=== PATIENT | female | born 1960 | race Caucasian/White ===

== ENCOUNTER 2020-07-10 07:56 | Emergency (ER) | payer OTHER, SELFPAY ==
--- NOTE | ~2020-07-10 | XR_ITS ---
XR knee LT min 4V 07/10/2020 09:04 INDICATION: Left knee pain PROCEDURE: 4 views left knee COMPARISON: No prior studies for comparison. FINDINGS: Fracture, dislocation or subluxation is not identified. Small joint effusion. There is mild osteoarthritis. The soft tissues appear within normal limits. No foreign bodies are identified. IMPRESSION: 1: NO ACUTE BONE OR JOINT ABNORMALITY IDENTIFIED. 2: Mild osteoarthritis of the patellofemoral compartment. Reviewed, dictated and finalized at location B.
--- NOTE | ~2020-07-10 | XR_ITS ---
XR ankle LT min 3V 07/10/2020 09:04 INDICATION: Left ankle pain after falling PROCEDURE: 4 views left ankle COMPARISON: No prior studies for comparison. FINDINGS: Fracture, dislocation or subluxation is not identified. The soft tissues appear within norm al limits. No foreign bodies are identified. IMPRESSION: 1: NO ACUTE BONE OR JOINT ABNORMALITY IDENTIFIED. Reviewed, dictated and finalized at location B.
[2020-07-10 08:00] VITALS: BP 147/91; PULSE 70; RESP 16; TEMP 36.8; O2SAT 100
--- NOTE | 2020-07-10 10:12 | ED.LOWEXIN ---
HPI - Extremity Injury (Lower) General Chief Complaint: Extremity Injury, Lower Stated Complaint: fall/ankle & knee pain Time Seen by Provider: 07/10/20 08:19 Source: patient Mode of arrival: ambulatory Limitations: no limitations History of Present Illness HPI Narrative: This patient is a 60 year old female who presents for evaluation of left knee and left ankle pain. She states she slipped last night in the mud. She reports pain with bearing weakness. she reports mild swelling to right ankle. She took 2 ibuprofen this morning. She denies head injury or any other pain. Related Data Home Medications Medication Instructions Recorded Confirmed aspirin [Adult Low Dose Aspirin] 07/10/20 bupropion HCl mg PO 07/10/20 cetirizine mg 07/10/20 hydrochlorothiazide 07/10/20 irbesartan mg 07/10/20 Allergies Allergy/AdvReac Type Severity Reaction Status Date / Time azithromycin Allergy Hives Verified 07/10/20 08:34 Review of Systems Review of Systems: All systems reviewed & are unremarkable except as noted in HPI and below PMFSH Past Medical History Medical History (Updated 07/10/20 @ 10:17 by Brianda Weber MD) Hypertension Surgical History Surgical History (Updated 07/10/20 @ 10:14 by Brianda Weber MD) History of hysterectomy Family History Family History (Updated 06/23/14 @ 07:13 by DOCTOR UNKNOWN) Father Hypertension Family history of malignant neoplasm of kidney Mother Hypertension Cerebrovascular accident Other Family history of allergic disorder Social History Social History Alcohol intake: current Exam Const: General: no acute distress and alert Orientation/consciousness: patient oriented x3 HENMT: Head: normocephalic and atraumatic Face and sinus: face symmetric Throat: posterior oropharynx normal, tonsils normal and uvula midline Eyes: Pupils: Equal, round and reactive pupils present EOM: EOMs intact bilaterally Chest: Chest palpation & inspection: normal inspection of the chest Resp: Effort & Inspection: normal respiratory effort Skin: General skin exam: normal color Rashes: no rashes Neuro: General: patient oriented x3 and moves all extremities Extrem: General: no pedal edema Other: left knee with no swelling or bruising. , left ankle with mild anterior tenderness but no deformity, no swelling, no erythema or bruising Psych: Mental Status: mental status grossly normal Course Reevaluation(s) Reevaluation #1: I discussed with patient that xray did not show any acute fractures. Date: 07/10/20 Time: 10:16 Vital Signs Vital signs: Vital Signs Temperature 98.2 F 07/10/20 08:00 Pulse Rate 70 07/10/20 08:00 Respiratory Rate 16 07/10/20 08:00 Blood Pressure 147/91 H 07/10/20 08:00 Pulse Oximetry 100 07/10/20 08:00 Temperature 98.2 F 07/10/20 08:00 Pulse Rate 70 07/10/20 08:00 Respiratory Rate 16 07/10/20 08:00 Blood Pressure 147/91 H 07/10/20 08:00 Pulse Oximetry 100 07/10/20 08:00 MDM - Extremity Injury (Lower) Imaging Data Radiologist's impression: ITS Impressions Knee X-Ray 07/10/20 09:11 IMPRESSION: 1: NO ACUTE BONE OR JOINT ABNORMALITY IDENTIFIED. 2: Mild osteoarthritis of the patellofemoral compartment. Ankle X-Ray 07/10/20 09:12 IMPRESSION: 1: NO ACUTE BONE OR JOINT ABNORMALITY IDENTIFIED. Discharge Plan Discharge Clinical Impression: Osteoarthritis of left knee, Left ankle sprain Patient Disposition: Home, Self-Care Condition: Stable Instructions: Antibiotic Form, Ankle Sprain (ED), Arthralgia (ED) Additional Instructions: Today you suffered an ankle and knee sprain. continue to ice as needed. Follow up with your primary care physician or your orthopedic surgeon if pain not improved within 1 week. Prescriptions: New naproxen 500 mg tablet 500 mg PO BID PRN (Reason: pain) Qty: 14 RF: 0 No Action cetirizine 10 mg tablet
[2020-07-10 11:00] VITALS: BP 124/75; PULSE 70; RESP 16; O2SAT 100
== END 2020-07-10 11:00 | disposition home or self-care (01) ==
PROVIDERS: Emergency Provider General Practice
DX: M17.12 Unilateral primary osteoarthritis, left knee (principal); S93.402A Sprain of unspecified ligament of left ankle, initial encounter; W01.0XXA Fall on same level from slipping, tripping and stumbling without subsequent striking against object, initial encounter; I10 Essential (primary) hypertension
CPT/HCPCS: 73564; 73610; 99284

== ENCOUNTER → 2020-08-03 07:01 | Outpatient (CLI) | payer OTHER, SELFPAY ==
--- NOTE | ~2020-08-03 | MR_ITS ---
EXAMINATION: MR knee LT wo con DATE: 08/03/2020 07:41 INDICATION: Left knee pain TECHNIQUE: Magnetic resonance imaging (MRI) of the left knee was performed without intravenous contra st. Sequences included coronal PD-weighted FSE, coronal PD-weighted FS FSE, sagittal T2-weighted FSE , sagittal PD-weighted FS FSE and axial PD weighted fat saturated FSE. COMPARISON: None. FINDINGS: Medial compartment: Longitudinal oblique tear extending to the inferior articular surface at the body and posterior horn of the medial meniscus. Mild partial thickness cartilage loss with chondral surface irregularity lobo g the medial tibial plateau and weightbearing medial femoral condyle. Small marginal osteophytes are present. Lateral compartment: Lateral meniscus is normal. Deep chondral fissuring with underlying subarticular edema at the medial side of the lateral tibial plateau along the shoulder the intercondylar eminence. Patellofemoral compartment: Extensive deep chondral ulceration with underlying cortical irregularity and scattered subarticular e gilbert at both the medial and lateral patellar facets and intervening apical ridge. Small region of brendon p chondral ulceration also with cortical irregularity and subarticular edema at the central aspect of the lateral trochlea. Ligaments and tendons: Anterior and posterior cruciate ligaments are normal. The medial collateral ligament and fibular domingo ateral ligament complex are normal. Mild tendinopathy at the patellar insertion of the distal quadric eps and proximal patellar tendons. The visualized medial and lateral hamstring tendons as well as the iliotibial band are normal. Heterotopic ossicle is seen in the proximal tendon of the medial head of the gastrocnemius muscle at its femoral insertion. Fluid: Small left knee joint effusion. No loose osteochondral bodies identified. Osseous/other: Normal marrow signal aside from the previous noted regions of degenerative subarticular edema. No fra cture or pathologic marrow replacing process. IMPRESSION: 1. Longitudinal oblique medial meniscal tear. 2. Tricompartmental osteoarthritis, moderate severity in the patellofemoral compartment with extensiv e high-grade chondromalacia and mild in the medial and lateral compartments. 3. Likely reactive small left knee joint effusion. Reviewed, dictated and finalized at location A. IMPRESSION: 1. Longitudinal oblique medial meniscal tear. 2. Tricompartmental osteoarthritis, moderate severity in the patellofemoral com partment with extensive high-grade chondromalacia and mild in the medial and la teral compartments. 3. Likely reactive small left knee joint effusion.
== END ==
PROVIDERS: Visit Provider Nurse Practitioner Family
DX: M17.12 Unilateral primary osteoarthritis, left knee (principal); M25.462 Effusion, left knee; S83.242A Other tear of medial meniscus, current injury, left knee, initial encounter; X58.XXXA Exposure to other specified factors, initial encounter
CPT/HCPCS: 73721

== ENCOUNTER 2020-10-05 15:16 | Outpatient (CLI) | payer OTHER, SELFPAY ==
--- NOTE | 2020-10-05 15:17 | ECG_ITS ---
Measurements Intervals [place] Rate: 67 P: 64 HI: 178 QRS: 26 QRSD: 118 T: 42 QT: 382 QTc: 404 Interpretive Statements SINUS RHYTHM INTRAVENTRICULAR CONDUCTION DELAY MINIMAL Q WAVES- INFERIOR LEADS BASELINE ARTIFACT- I, II, III, AVR, AVL, AVF BORDERLINE ECG Electronically Signed On 10-05-2020 15:31:48 [employer]ED [employer]GER by Drake Torres D.O.
[2020-10-05 15:57] LABS: Anion Gap 9 mmol/L (8-16); Blood Urea Nitrogen 16 mg/dL (7-17); Calcium 9.4 mg/dL (8.4-10.2); Carbon Dioxide 30 mmol/L (22-30); Chloride 102 mmol/L (98-107); Estimated Glomerular Filt Rate > 60; Glucose 96 mg/dL (65-105); Potassium 3.9 mmol/L (3.4-5.0); Sodium 141 mmol/L (137-145)
== END 2020-10-05 15:17 | disposition home or self-care (01) ==
PROVIDERS: Anesthesiology; PCP Family Medicine Sports Medicine; Visit Provider Orthopaedic Surgery
DX: Z01.818 Encounter for other preprocedural examination (principal); I10 Essential (primary) hypertension; T50.2X5A Adverse effect of carbonic-anhydrase inhibitors, benzothiadiazides and other diuretics, initial encounter; I45.9 Conduction disorder, unspecified
CPT/HCPCS: 36415; 80048; 93005

== ENCOUNTER 2020-10-07 01:15 | Outpatient (CLI) | payer OTHER, SELFPAY ==
[2020-10-07 20:15] LABS: SARS-CoV-2 RNA PCR Negative
== END 2020-10-07 01:16 | disposition home or self-care (01) ==
LOC: ANHCOVIDDT 01:15
PROVIDERS: PCP Family Medicine Sports Medicine; Visit Provider Orthopaedic Surgery
DX: Z01.818 Encounter for other preprocedural examination (principal); Z20.828 Contact with and (suspected) exposure to other viral communicable diseases
CPT/HCPCS: 87635; C9803; U0003

== ENCOUNTER 2020-10-11 00:12 | Day surgery (SDC) | payer OTHER, SELFPAY ==
[2020-10-03 15:32] VITALS: BMI 34.5
--- NOTE | 2020-10-05 16:07 | PM.IMHP ---
H&P: HPI History of Present Illness Chief complaint: Left Knee Medial Meniscus Tear Narrative: Knee Pain Pt. presents with Lt knee pain. Pt. stated she was some yard work was walking down a hill when she slipped in mud on 07/09/20-5Wks 4D s/p injury. Involved knee: left Onset: sudden Location of pain: medial and lateral Pain scale (0-10): 7 Character: dull ache Timing of pain: intermittent Exacerbated by: weight bearing and prolonged activity Relieved by: elevation, ice, rest and NSAIDs Associated symptoms: Reports swelling, instability and stiffness History of occupational/recreational activity with repetitive motion: No History of prior knee injury: No Review of Systems Review of Systems: All systems reviewed & are unremarkable except as noted in HPI and below Constitutional: Constitutional: Denies headache(s) and Denies weakness Eyes: Eyes: Denies blurry vision, Denies change in vision and Denies loss of vision ENT: Denies dizziness, Denies dry mouth, Denies headache(s) and Denies nasal congestion Cardiovascular: Cardiovascular: Denies chest pain, Denies syncope, Denies leg edema and Denies dyspnea on exertion Respiratory: Respiratory: Denies cough and Denies dyspnea on exertion Gastrointestinal: Gastrointestinal: Denies abdominal pain, Denies constipation and Denies diarrhea Genitourinary: Genitourinary: Denies urinary frequency Musculoskeletal: Musculoskeletal: Reports as per HPI and Denies numbness Integumentary/Breasts: Skin/Breast: Reports system reviewed and no additional complaints, except as docu Neurologic: Denies dizziness, Denies syncope, Denies headache(s), Denies loss of vision, Denies numbness and Denies weakness Psychiatric: Psychiatric: Reports no additional psychiatric complaints Endocrine: Endocrine: Reports no additional endocrine complaints Hematologic/Lymphatic: Hematologic/Lymphatic: Reports no additional hematologic/lymphatic complaints [facility] Past Medical History Medical History Ankle sprain Depression History of adverse reaction to anesthesia Hypertension Left ankle pain Left knee pain MCL sprain of left knee Medial meniscus tear Seasonal allergies Urinary frequency Vision abnormalities Surgical History Surgical History History of hysterectomy Family History Family History Father Hypertension Family history of malignant neoplasm of kidney Mother Hypertension Cerebrovascular accident Other Arthritis Family history of allergic disorder Social History Social History Years smoked: 15 Smoking status: Former smoker Smoking end date: 10/03/95 Alcohol intake: current Spiritual care concerns: No Meds Home Medications and Allergies Home Medications Medication Instructions Recorded Confirmed Type aspirin [Adult Low Dose Aspirin] 81 mg PO DAILY 07/10/20 10/03/20 History bupropion HCl 300 mg PO DAILY 07/10/20 10/03/20 History cetirizine 10 mg PO DAILY 07/10/20 10/03/20 History hydrochlorothiazide 25 mg PO DAILY 07/10/20 10/03/20 History irbesartan 150 mg PO DAILY 07/10/20 10/03/20 History naproxen 500 mg PO BID PRN #14 tablet 07/10/20 10/03/20 Rx chlorhexidine gluconate 4 % 1 applic TOPICAL ONCE #237 ml 08/22/20 Rx topical liquid Allergies Allergy/AdvReac Type Severity Reaction Status Date / Time azithromycin Allergy Mild Hives Verified 10/03/20 15:22 Exam Narrative: Exam Narrative: Exam Const Constitutional General: cooperative Nutritional Appearance: average body habitus Orientation/consciousness: patient oriented x3 Constitutional Limitations: no limitations HENMT Head: normal to inspection Ears: hearing grossly normal bilaterally General nose exam: Normal external nose present Face and sinus: normal facial exam [place]
--- NOTE | 2020-10-10 13:52 | WPDANESEPPF ---
Anes - Initial Pre Proc Eval Procedure: Operation Date: 10/11/20 09:45 Proposed Procedures p Left Knee Arthroscopy, Proceed As Indicated - Oj Cortez MD Date/Time: 10/10/20 13:52 Surgeon: Oj Cortez MD Pre Op Diagnosis: Left Knee Medial Meniscus Tear Patient Data Age: 60 Gender: F Height: 1.7 m Weight: 100 kg Allergies Allergy/AdvReac Type Severity Reaction Status Date / Time azithromycin AdvReac Severe RASH/EXTREME Verified 10/11/20 07:54 HEADACHE Home Medications Medication Instructions Recorded Confirmed Type aspirin [Adult Low Dose Aspirin] 81 mg PO DAILY 07/10/20 10/11/20 History bupropion HCl 300 mg PO DAILY 07/10/20 10/11/20 History cetirizine 10 mg PO DAILY 07/10/20 10/11/20 History hydrochlorothiazide 25 mg PO DAILY 07/10/20 10/11/20 History irbesartan 150 mg PO DAILY 07/10/20 10/11/20 History naproxen 500 mg PO BID PRN #14 tablet 07/10/20 10/11/20 Rx chlorhexidine gluconate 4 % 1 applic TOPICAL ONCE #237 ml 08/22/20 10/11/20 Rx topical liquid Patient hx anesthesia problems: none Family hx anesthesia problems: none PMFSH Past Medical History Medical History Ankle sprain Depression History of adverse reaction to anesthesia Hypertension Left ankle pain Left knee pain MCL sprain of left knee Medial meniscus tear Seasonal allergies Urinary frequency Vision abnormalities Surgical History Surgical History History of hysterectomy Family History Family History Father Hypertension Family history of malignant neoplasm of kidney Mother Hypertension Cerebrovascular accident Other Arthritis Family history of allergic disorder Social History Social History Years smoked: 15 Smoking status: Former smoker Smoking end date: 10/03/95 Alcohol intake: current Living arrangements: with family Spiritual care concerns: No Anes - Eval Final PreProcedure Day of Procedure 10/10/20 13:52 Patient weight: obese Heart: regular rate and rhythm Lungs: clear to auscultation and normal air movement Airway: Mallampati scale class II Neurological: alert and oriented Last oral intake: >/= 8 hours ASA classification: III Emergent: no Anesthetic plan: proceed Anesthesia type and monitoring: general LMA and standard monitoring Informed Consent: The patient's anesthetic plan and its attendant risks and benefits were discussed with the patient/family/POA. Questions were solicited and answers provided to the satisfaction of the patient/family/POA.
[2020-10-11] VITALS (8 sets, daily range): BP systolic 133–162; BP diastolic 66–91; PULSE 61–81; RESP 12–20; TEMP 36.1; O2SAT 98–100
--- NOTE | 2020-10-11 07:25 | WPDHPUPDATE1 ---
History and Physical Update Update Date/Time: 10/11/20 07:25 History and Physical has been reviewed, including an updated exam of the patient. There are NO changes in the patient's condition. Risks, benefits, and alternatives have been discussed and questions answered. Patient agrees to proceed with procedure.
[2020-10-11] MEDS: ACETAMINOPHEN 500 MG TABLET 1000 MG PO (07:55)
[2020-10-11] MEDS: CELECOXIB 200 MG CAPSULE PO (07:55)
[2020-10-11] MEDS: LACTATED RINGERS 1,000 ML 30 ML IV CONT ×2 (08:15→11:51)
[2020-10-11] MEDS: FAMOTIDINE 20 MG/2 ML VIAL IV PUSH (08:40)
[2020-10-11] MEDS: SCOPOLAMINE 1.5 MG PATCH TRANSDERM (08:40)
[2020-10-11] MEDS: ceFAZolin 2 GM/D5W 50 ML 2 GM/50 ML BAG IVPB (10:48)
[2020-10-11] MEDS: BUPIVACAINE HCL 0.5% PF 30 ML VIAL INFILTRATE (11:12)
--- NOTE | 2020-10-11 11:51 | PM.PROC ---
Procedure Note - Detailed Date of procedure: 10/11/20 Pre-op diagnosis: Left Knee Medial Meniscus Tear Post-op diagnosis: same Procedure performed: LEFT KNEE SCOPE WITH PARTIAL MEDIAL MENISCECTOMY AND MAJOR SYNOVECTOMY Description of procedure: PATIENT WAS TAKEN TO THE OR. LEFT LEG WAS PREPPED AND DRAPED STERILE. TROCARS WERE PLACED IN THE USUAL FASHION. CAMERA WAS INTRODUCED. THERE WAS CHONDROMALACIA TO THE PATELLA FEMORAL JOINT. THERE WAS A LOT OF SYNOVITIS IN ALL COMPARTMENTS. THE MEDIAL COMPARTMENT SHOWED CHONDROMALACIA TO THE MED FEMORAL CONDYLE. A SHAVER WAS USED TO PREFORM A CHONDROPLASTY. THERE WAS A COMPLEX MEDIAL MENISCUS TEAR. THE TEAR WAS RESECTED WITH A BITER AND A SHAVER DOWN TO A SMOOTH BASE. ABOUT 20% OF THE MENISCUS WAS REMOVED. THE ACL WAS INTACT. THE LATERAL MENISCUS WAS NOT TORN. THE LAT COMPARTMENT HAD MINIMAL CHONDROMALACIA. A SYNOVECTOMY WAS PREFORMED. THE PATELLO FEMORAL JOINT UNDERWENT CHONDROPLASTY. SYNOVECTOMY WAS PREFORMED IN THE SUPERIOR MEDIAL COMPARTMENT. THE WOUNDS WERE APPROXIMATED WITH 4.0 NYLON. STERILE DRESSING WAS APPLIED. PATIENT WAS EXTUBATED. Anesthesia: GLMA Surgeon: Oj Cortez MD Estimated blood loss (mL): 5 Complications: No immediate complications Condition: stable Disposition: PACU
[2020-10-11] MEDS: fentaNYL CITRATE INJ (*CRX) 100 MCG/2 ML VIAL 25 MCG IV PUSH (12:17)
== END 2020-10-11 13:45 | disposition home or self-care (01) ==
PROVIDERS: PCP Family Medicine Sports Medicine; Visit Provider Orthopaedic Surgery
PROC: (CPT 29870; principal; 2020-10-11 09:45)
DX: S83.232A Complex tear of medial meniscus, current injury, left knee, initial encounter (principal); W17.81XA Fall down embankment (hill), initial encounter; M94.262 Chondromalacia, left knee; M65.862 Other synovitis and tenosynovitis, left lower leg; I10 Essential (primary) hypertension; F32.9 Major depressive disorder, single episode, unspecified; Z79.82 Long term (current) use of aspirin; Z87.891 Personal history of nicotine dependence; E66.9 Obesity, unspecified; Z68.35 Body mass index [BMI] 35.0-35.9, adult
CPT/HCPCS: 29881; 29876; 36415; 80048; 87635; 93005; A9270; C9803; J0690; J1100; J2250; J2405; J2704; J3010; J7120; U0003

== ENCOUNTER 2023-05-08 01:01 | Day surgery (SDC) | payer OTHER, SELFPAY ==
[2023-04-28 09:51] VITALS: BMI 34.5
[2023-05-08 10:30] VITALS: BP 128/84; PULSE 74; RESP 18; TEMP 36.4; O2SAT 97
[2023-05-08] MEDS: LACTATED RINGERS 1,000 ML 150 ML IV CONT (10:37)
--- NOTE | 2023-05-08 10:46 | PM.HPGS ---
History of Present Illness History of Present Illness Consent: Risks, benefits, and alternatives have been discussed and questions answered. Patient agrees to proceed with procedure. Chief complaint: neoplasia screening Narrative: [place] Ca is a 62 year old female Presents for screening colonoscopy. Patient's current weight appetite and bowel movements are normal. Patient denies abdominal pain. She has had no bleeding. Family history is noncontributory. Patient did have colonoscopy 10 years ago that revealed benign hyperplastic colon polyps. Patient presents today for screening exam. Review of Systems Review of Systems: Review of systems noncontributory. [facility] Past Medical History Medical History Ankle sprain Depression History of adverse reaction to anesthesia Hypertension Left ankle pain Left knee pain MCL sprain of left knee Medial meniscus tear Seasonal allergies Urinary frequency Vision abnormalities Surgical History Surgical History History of hysterectomy Family History Family History Father Hypertension Family history of malignant neoplasm of kidney Mother Hypertension Cerebrovascular accident Other Arthritis Family history of allergic disorder Social History Social History Years smoked: 15 Smoking status: Former smoker Tobacco type: cigarettes Smoking end date: 10/03/95 Alcohol intake: current Alcohol use details: occasional Substance use type: does not use Living arrangements: with family Spiritual care concerns: No Meds Home Medications and Allergies Home Medications Medication Instructions Recorded Confirmed Type aspirin 81 mg tablet,delayed 81 mg PO DAILY 07/10/20 04/28/23 History release (Adult Low Dose Aspirin) bupropion HCl 300 mg 24 hr tablet, 300 mg PO DAILY 07/10/20 04/28/23 History extended release cetirizine 10 mg tablet 10 mg PO DAILY PRN Allergy Symptoms 07/10/20 04/28/23 History hydrochlorothiazide 25 mg tablet 25 mg PO DAILY 07/10/20 04/28/23 History irbesartan 150 mg tablet 150 mg PO DAILY 07/10/20 04/28/23 History hydrocodone 5 mg-acetaminophen 325 1 tablet PO Q6H PRN Pain 04/28/23 04/28/23 History mg tablet Allergies Allergy/AdvReac Type Severity Reaction Status Date / Time azithromycin AdvReac Severe RASH/EXTREME Verified 05/08/23 10:29 HEADACHE Vital Signs Vital Signs - 24 hr 05/08/23 10:30 Temperature 97.6 F Pulse Rate 74 Respiratory Rate 18 Blood Pressure 128/84 Pulse Oximetry 97 Oxygen Delivery Room Air Exam Narrative: Physical exam reveals patient to be alert. Vital signs stable. HEENT exam is unremarkable. Patient is anicteric. Lungs are clear to auscultation and percussion. Heart is without murmur or extra sounds. Abdomen bowel sounds are present soft nontender with no organomegaly. Digital external rectal exam normal. Assessment and Plan Assessment and plan (1) Encounter for screening colonoscopy: Code(s): Z12.11 - Encounter for screening for malignant neoplasm of colon Status: Acute Assessment and Plan: Patient presents for screening colonoscopy. She appears to be at average risk for neoplastic colon polyps. Further recommendations may be given after endoscopy.
--- NOTE | 2023-05-08 10:52 | WPDANESEPPF ---
Anes - Initial Pre Proc Eval Procedure: Operation Date: 05/08/23 11:30 Proposed Procedures p Colonoscopy - Gino Singletary MD Date/Time: 05/08/23 10:52 Surgeon: Gino Singletary MD Pre Op Diagnosis: neoplasia screening Patient Data Age: 62 Gender: F Height: 1.7 m Weight: 98.5 kg Last Vital Signs Temp 97.6 F 05/08/23 10:30 Pulse 74 05/08/23 10:30 Resp 18 05/08/23 10:30 BP 128/84 05/08/23 10:30 Pulse Ox 97 05/08/23 10:30 O2 Del Method Room Air 05/08/23 10:30 Allergies Allergy/AdvReac Type Severity Reaction Status Date / Time azithromycin AdvReac Severe RASH/EXTREME Verified 05/08/23 10:29 HEADACHE Home Medications Medication Instructions Recorded Confirmed Type aspirin 81 mg tablet,delayed 81 mg PO DAILY 07/10/20 04/28/23 History release (Adult Low Dose Aspirin) bupropion HCl 300 mg 24 hr tablet, 300 mg PO DAILY 07/10/20 04/28/23 History extended release cetirizine 10 mg tablet 10 mg PO DAILY PRN Allergy Symptoms 07/10/20 04/28/23 History hydrochlorothiazide 25 mg tablet 25 mg PO DAILY 07/10/20 04/28/23 History irbesartan 150 mg tablet 150 mg PO DAILY 07/10/20 04/28/23 History hydrocodone 5 mg-acetaminophen 325 1 tablet PO Q6H PRN Pain 04/28/23 04/28/23 History mg tablet Patient hx anesthesia problems: none Family hx anesthesia problems: none Results Review: All pre-operative results and documents have been reviewed as part of the pre-operative evaluation. [facility] Past Medical History Medical History Ankle sprain Depression History of adverse reaction to anesthesia Hypertension Left ankle pain Left knee pain MCL sprain of left knee Medial meniscus tear Seasonal allergies Urinary frequency Vision abnormalities Surgical History Surgical History History of hysterectomy Family History Family History Father Hypertension Family history of malignant neoplasm of kidney Mother Hypertension Cerebrovascular accident Other Arthritis Family history of allergic disorder Social History Social History Years smoked: 15 Smoking status: Former smoker Tobacco type: cigarettes Smoking end date: 10/03/95 Alcohol intake: current Alcohol use details: occasional Substance use type: does not use Living arrangements: with family Spiritual care concerns: No Anes - Eval Final PreProcedure Day of Procedure 05/08/23 10:52 Patient weight: obese Heart: regular rate and rhythm Lungs: clear to auscultation Airway: Mallampati scale class II Neurological: alert and oriented Last oral intake: >/= 8 hours ASA classification: II Emergent: no Anesthetic plan: proceed Anesthesia type and monitoring: general GIVS and standard monitoring Results Review: All pre-operative results and documents have been reviewed as part of the pre-operative evaluation. Informed Consent: The patient's anesthetic plan and its attendant risks and benefits were discussed with the patient/family/POA. Questions were solicited and answers provided to the satisfaction of the patient/family/POA.
[2023-05-08 11:37] VITALS: BP 127/79; PULSE 68; RESP 21; O2SAT 97
[2023-05-08 11:47] VITALS: BP 125/79; PULSE 66; RESP 20; O2SAT 97
[2023-05-08 11:57] VITALS: BP 118/72; PULSE 62; RESP 19; O2SAT 100
== END 2023-05-08 12:04 | disposition home or self-care (01) ==
PROVIDERS: PCP Family Medicine Sports Medicine; Visit Provider Internal Medicine Gastroenterology
PROC: 0DJD8ZZ Inspection of Lower Intestinal Tract, Via Natural or Artificial Opening Endoscopic (ICD-10-PCS; CPT 45378; principal; 2023-05-08 11:30)
DX: Z12.11 Encounter for screening for malignant neoplasm of colon (principal); K64.8 Other hemorrhoids; K57.30 Diverticulosis of large intestine without perforation or abscess without bleeding; Z86.010 Personal history of colon polyps; F32.A Depression, unspecified; I10 Essential (primary) hypertension; Z87.891 Personal history of nicotine dependence; E66.9 Obesity, unspecified; Z68.34 Body mass index [BMI] 34.0-34.9, adult; Z79.82 Long term (current) use of aspirin
CPT/HCPCS: 45378; J2704; J7120